=== PATIENT | female | born 1940 | race Caucasian/White ===

== ENCOUNTER → 2025-02-01 | Outpatient (REF) | payer MEDICARE ==
[~2025-02-01] MED LIST: BAYER PO; CARVEDILOL3.125 MG PO; LISINOPRIL10 MG PO; MEDROL4 MG PO; PREMARIN0.9 MG PO; TRAMADOL-ACETAMI1 EA PO; VITAMIN D35000 UNI1 PO; WAL-FEX D 24 H1 EACH PO; cranberry PO
== END ==
LOC: RAD 14:11
PROVIDERS: ATTEND Internal Medicine
DX: R60.0 Localized edema (principal); I82.411 Acute embolism and thrombosis of right femoral vein; I82.431 Acute embolism and thrombosis of right popliteal vein
CPT/HCPCS: 93971

== ENCOUNTER → 2025-07-19 | Outpatient (REF) | payer MEDICARE | LOC: RAD 13:07 | PROVIDERS: ATTEND Internal Medicine | DX: I73.89 Other specified peripheral vascular diseases (principal); I50.32 Chronic diastolic (congestive) heart failure; G44.309 Post-traumatic headache, unspecified, not intractable; Z86.718 Personal history of other venous thrombosis and embolism | CPT/HCPCS: 70450; 93971 ==